=== PATIENT | male | born 1955 | race Caucasian/White ===

== ENCOUNTER → 2019-02-09 11:09 | Outpatient (CLI) | payer MEDICAID, SELFPAY ==
--- NOTE | 2019-02-09 11:18 | XR_ITS ---
XR knee RT 3V HISTORY: ITS.REASON: pain ORDERING PHYSICIAN: Neena Way APRN PATIENT AGE: 63 years COMPARISON: None FINDINGS: There are moderate osteoarthritic changes of the medial compartment with moderate to severe osteoarthritis of the patellofemoral joint. Osteophytes are noted at all 3 compartments. There is a 2 cm calcific density along the posterior aspect of the popliteal fossa consistent with a loose body possibly due to a synovial osteochondroma. Knee joint effusion is present. No fracture or dislocation. IMPRESSION: Moderate to severe osteoarthritis with knee joint effusion and popliteal fossa loose body
== END ==
PROVIDERS: PCP Emergency Medicine; Visit Provider Nurse Practitioner Family
DX: R52 Pain, unspecified (principal)
CPT/HCPCS: 73562